=== PATIENT | female | born 1955 | race Caucasian/White ===

== ENCOUNTER 2017-04-23 13:59 | Outpatient (CLI) ==
--- NOTE | 2017-04-23 14:38 | DI ---
EXAM: Five views of the cervical spine HISTORY: Radiculopathy. COMPARISON: None FINDINGS: Vertebral bodies demonstrate no acute compression fracture or subluxation. The facets and posterior processes are normal. There is no lytic or blastic lesion. The neural foramen are patent. The odontoid process is unremarkable. IMPRESSION: No acute abnormality or compression fracture of the cervical spine.
--- NOTE | 2017-04-23 14:39 | DI ---
EXAM: Three views of the thoracic spine HISTORY: Back pain. COMPARISON: None FINDINGS: There is no acute compression fracture or subluxation. There is minimal scattered disc spa ce narrowing. There is no lytic or blastic lesion. There are surgical clips in right upper quadrant . IMPRESSION: Mild degenerative change with no acute compression fracture or subluxation.
== END 2017-04-23 14:00 | disposition home or self-care (01) ==
LOC: RAD 13:59
PROVIDERS: ATTEND Family Medicine
DX: M54.6 Pain in thoracic spine (principal); M54.12 Radiculopathy, cervical region

== ENCOUNTER 2017-06-09 07:17 | Outpatient (CLI) ==
--- NOTE | 2017-06-09 09:32 | US ---
EXAM: Right upper quadrant abdominal ultrasound. History: Abdominal pain. Technique: Multiple sonographic images through the abdomen were obtained. Color duplex Doppler was used to interrogate vascular flow. Findings: The visualized pancreas demonstrates no gross abnormality. No abdominal ascites. No focal liver les ions identified sonographically. The liver is echogenic. There is antegrade flow within the main po rtal vein. Status post cholecystectomy. Common bile duct measures 0.4 cm in caliber. Limited visua lization of the right kidney demonstrates no evidence for hydronephrosis. Impression: 1. Hepatic steatosis. 2. Status post cholecystectomy.
== END 2017-06-09 07:18 | disposition home or self-care (01) ==
LOC: RAD 07:17
PROVIDERS: ATTEND Family Medicine
DX: M54.6 Pain in thoracic spine (principal)

== ENCOUNTER 2017-06-10 10:02 | Outpatient (CLI) ==
--- NOTE | 2017-06-10 15:32 | MRI ---
EXAM: MRI thoracic spine without IV contrast. DATE: 10 June 2017. HISTORY: Acute left-sided thoracic spine pain. TECHNIQUE: Sagittal T2W, sagittal T1W, sagittal IR, coronal T2W, axial T2W and axial T1W sequences o f the thoracic spine were obtained using 1.2 Alexa magnet. No IV contrast. COMPARISON: Thoracic spine series 23 April 2017. Thyroid ultrasound 02 July 2015. FINDINGS: Sagittal counting carbon rod inserter sequence of the cervical and thoracic spine reveals no acute c-spi ne fracture, subluxation, osseous malignancy, or jumped facet. Cervical vertebrae normal in height. Intervertebral discs are normal in height. Minor posterior disc bulges may cause mild central canal stenoses at C4-5, C5-6 and C6-7. No cord edema, syrinx, or myelomalacia is evident. Visible brains tem and cerebellum are normal. A T2W bright, 6.3 mm focus in the left thyroid lobe is best seen on a xial image #2. No suspicious soft tissue neck mass or cervical lymphadenopathy is identified. There are 12 thoracic vertebra with paired ribs. Mild leftward curvature of the upper thoracic and lo wer cervical spine is noted. Mild, gradual kyphotic curvature of the thoracic spine is noted. No ac [place] T-spine fracture, subluxation, osseous malignancy, or jumped facet is evident. Thoracic vertebra are normal in height. Bone marrow signal is normal. Intervertebral discs are normal in height. Di sc desiccation is observed at T5-6, T6-7, and T7-8. Conus medullaris terminates at L1. Visible spin al cord is normal. No acute rib fracture, rib lesion, paraspinal mass, or chest wall malignancy is detected. Thoracic a [place], thoracic esophagus and trachea are normal. No pneumonia, lung mass, pleural effusion, mediasti nal lymphadenopathy or hilar lymphadenopathy is demonstrated. Visible portion of each shoulder is un remarkable. Right lobe liver is approximately 18.5 cm in length, without distinct focal mass. Splee n, adrenal glands, and right kidney reveal no definitive neoplasm. T2W/T1W bright, 7.3 mm focus in t he posterior cortex upper pole left kidney is likely a hemorrhagic cyst. T2W bright, T1W dark, 7.7 m m focus in the posterolateral cortex lower pole left kidney is likely a simple cyst, but not fully ch aracterized. Segmental analysis: C7-T1: Normal, except for mild right foraminal narrowing due to facet disease. T1-2: Normal. T2-3: Normal. T3-4: Normal, except for minor right foraminal narrowing due to mild right facet arthropathy. T4-5: Normal. T5-6: Normal. T6-7: Normal, except for minor thecal sac narrowing due to dorsal epidural fat. T7-8: Normal, except for minor thecal sac narrowing due to dorsal epidural fat. T8-9: Normal, except for minor thecal sac narrowing due to dorsal epidural fat. T9-10: Normal, except for mild bilateral facet arthropathy. T10-11: Normal. T11-12: Normal. T12-L1: Normal. IMPRESSIONS: 1. T-spine minor leftward curvature (superiorly) and minor/mild facet arthropathy. 2. Minor central canal stenoses at T6-7, T7-8, and T8-9 due to dorsal epidural fat. 3. Mild right C7-T1 and minor right T3-4 foraminal narrowing. 4. C-spine DDD and mild central stenoses at C4-5, C5-6, C6-7. 5. Left kidney probable benign hemorrhagic and simple cysts. 6. Mild hepatomegaly - etiology uncertain. 7. Left thyroid nodule - likely correlates with one of the nodules seen on June 2015 US. Correlate with physical exam. If indicated a follow-up ultrasound can be a obtained.
== END 2017-06-10 10:03 | disposition home or self-care (01) ==
LOC: RAD 10:02
PROVIDERS: ATTEND Family Medicine
DX: M54.6 Pain in thoracic spine (principal)

== ENCOUNTER 2018-08-13 14:00 | Outpatient (RCR) ==
--- NOTE | 2018-07-28 09:27 | RS.OPPTEV2 ---
Date of Note: 07/27/18 Visit #: 1 Number of visits approved by Insurance: n/a Date of Evaluation: 07/27/18 Payer Source: Insurance Surgery Performed?: No Treatment Diagnosis: adhesive capsulitis, L shoulder pain History of Condition/Mechanism of Injury:: No definite injury noted. Reports pain began in March 2018. 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 States she is unsure why pain began, she just woke up one day and it was sore and then has gotten worse. States pain feels "tight, pressure around her shld" Treatment Side (optional): Left *Precautions: n/a Medical History Medical History: Hypertension, Diabetes, Arthritis Surgical History: Cholecystectomy Smoking Status: Never smoker Hx Home Medications: metformin, losartan, tradjenta, methimazole, aspirin Patient's Goals: "decrease pain and be able to reach back to un hook my bra" Pain Assessment - Pain Description Pain Location: L shld Pain Description: Tightness, Aching Current Pain Intensity: 1/10 at rest increases to 6/10 with ROM Functional Outcome Measure UE Functional Index: 62 - G Codes & Severity Modifier G Codes & Modifier: n/a Source of G Code score: n/a Observation - Observation Posture: Forward Head, Rounded Shoulders Handedness: Right Gait - Gait Pattern General Gait Pattern Observation: No Deviations/Normal General Range of Motion: RUE WFL's. BLE WFL's. L shld limited, elbow WFL's Muscle Strength: RUE 5/5. BLE 5/5. LUE elbow flex/ext 4/5 Shoulder ROM: Right WFL's Shoulder Muscle Strength: Right WFL's - Left Shoulder ROM Left Shoulder Flexion: 118 Left Shoulder Abduction: 90 Left Shoulder Internal Rotation: 76 Left Shoulder External Rotation: 45 Left Shoulder ROM Limitations: Soft Tissue Tightness, Muscle Weakness, Pain - Left Shoulder Strength Left Shoulder Flexion: 3- Fair- Left Shoulder Abduction: 3- Fair- Left Shoulder External Rotation: 3- Fair- Left Shoulder Internal Rotation: 3 Fair - Special Tests Shoulder Empty Can (Supraspinatus) Test: Positive Left Shoulder Speed's Sign Test: Positive Left Shoulder Apley's Scratch Test: Positive Left Palpation Palpation Findings: Tenderness Comments:: tenderness to palpation L shld in area of biceps tendon Sensation - Sensation Right Upper Extremity: Intact/Normal Left Upper Extremity: Intact/Normal Right Lower Extremity: Intact/Normal Left Lower Extremity: Intact/Normal Balance - Sitting Balance Static Sitting Balance: Normal Dynamic Sitting Balance: Normal - Standing Balance Static Standing Balance: Normal Dynamic Standing Balance: Normal - Treatment Modality: Ultrasound Parameters/Method Applied: 1.5w/cm2 x 8 mins Treatment Area: L shld Patient Position: Sitting Interventions - Exercise/Activities/Manual Therapy Exercises/Activities: pt received AAROM all planes L shld. pt performed AAROM with wand for flex. Finger walking in flex and abd, Isometric shld flex, abd, add, Manual Therapy: n/a HOME EXERCISE PROGRAM: pt given written HEP including shld flex AAROM with wand , tabletop shld AAROM Flex and abd, and ER. - Charges Timed Code Treatment Minutes: 46 Total Treatment Time: 52 Procedures billed for this date of service:: eval low, ultrasound, ex EVALUATION COMPLEXITY LEVEL EVALUATION COMPLEXITY LEVEL: HISTORY: Medium, EXAM OF BODY SYSTEMS: Low, CLINICAL PRESENTATION: Low, CLINICAL DECISION MAKING: Low Assessment Assessment: pt presents with decreased L shld ROM, strength, pain due to adhesive capsulitis. Feel pt would benefit from skilled PT for therex for ROM, strengthening, stretching to improve L shld ROM as well as modalities to decrease pain. Patient Education: Home Exercise Program, Education of Plan of Care Rehab Potential: Good Short Term Goals Goal #1: pt independent with initial HEP Goal to be met by: 08/06/18 Goal #2: ROM L shld flex 120, abd 100, ER 50 Goal to be met by: 08/06/18 Goal #3: Decrease pain with L shld ROM Goal to be met by: 08/06/18 Care Home Goals Goal #1: ROM L shld flex 125 abd 110 ER 60 Goal to be met by: 08/20/18 Goal #2: pt able to perform normal daily activities with less pain Goal to be met by: 08/20/18 Goal #3: pt able to reach to unhook bra independently Goal to be met by: 08/20/18 Plan - Treatment to be Provided Procedures: Therapeutic Exercises, Therapeutic Activity, Manual Therapy, Massage , Patient Education Modalities: Electrical Stimulation, Ultrasound/Phonophoresis, Class IV Laser, Cryotherapy, Hot Packs - Treatment Plan Frequency: 2 X week Duration: 4 weeks Dates of Television Station Manager Goals: 08/20/18 Expiration date of current Insurance Approval:: n/a - Treatment Code (1) Pain in joint, shoulder region Code(s): M25.519 - PAIN IN UNSPECIFIED SHOULDER Qualifiers: Laterality: left Qualified Code(s): M25.512 - Pain in left shoulder (2) Stiffness of joint, not elsewhere classified, shoulder region Code(s): M25.619 - STIFFNESS OF UNSPECIFIED SHOULDER, NOT ELSEWHERE CLASSIFIED (3) Adhesive capsulitis Code(s): M75.00 - ADHESIVE CAPSULITIS OF UNSPECIFIED SHOULDER Qualifiers: Laterality: left Qualified Code(s): M75.02 - Adhesive capsulitis of left shoulder
--- NOTE | 2018-07-30 16:05 | RS.OPPTDN ---
Subjective Date of Note: 07/30/18 Visit #: 2 Number of visits approved by Insurance: n/a Date of Evaluation: 07/27/18 Payer Source: Insurance Treatment Diagnosis: adhesive capsulitis, L shoulder pain Current Subjective/complaints:: pt states that she is tired today, very busy at work today. *Precautions: n/a Pain Assessment - Pain Description Pain Location: L shld Pain Description: Aching Current Pain Intensity: 1 at rest, 6 with ROM - Treatment Modality: Ultrasound Parameters/Method Applied: 1.5w/cm2 x 8 mins after ex Treatment Area: L shld Patient Position: Sitting - Heat/Cryotherapy Treatment: Hot Pack Comments:: prior to treatment Interventions - Exercise/Activities/Manual Therapy Exercises/Activities: pt received PROM L shld all planes, pt performed AAROM with wand for flex x 10, elbow flex/ext x 10 with wand, chest press with wand x 10 reps. Finger ladder flex and abd, pulleys for shld flex. pt performed scapular retraction x 10. Total minutes of Exercise: 29 Manual Therapy: n/a HOME EXERCISE PROGRAM: pt given written HEP including shld flex AAROM with wand , tabletop shld AAROM Flex and abd, and ER. - Charges Timed Code Treatment Minutes: 39 Total Treatment Time: 51 Procedures billed for this date of service:: ex2, ultrasound, hp Assessment: pt with increased stiffness this date. pt able to tolerate increased ex this visit. Patient Education: Home Exercise Program, Education of Plan of Care Patient demonstrates compliance with HEP?: Yes Short Term Goals Goal #1: pt independent with initial HEP Goal to be met by: 08/06/18 Progress towards Goal:: Progressing Goal #2: ROM L shld flex 120, abd 100, ER 50 Goal to be met by: 08/06/18 Progress towards Goal:: Progressing Goal #3: Decrease pain with L shld ROM Goal to be met by: 08/06/18 Progress towards Goal:: Progressing Milk Tester Goals Goal #1: ROM L shld flex 125 abd 110 ER 60 Goal to be met by: 08/20/18 Goal #2: pt able to perform normal daily activities with less pain Goal to be met by: 08/20/18 Goal #3: pt able to reach to unhook bra independently Goal to be met by: 08/20/18 Plan Dates of Milk Tester Goals: 6/7/19 Expiration date of current Insurance Approval:: n/a PLAN: plan to continue to work on ROM L shld as well as strengthening, and modalties to decrease pain and decrease muscle tightness.
--- NOTE | 2018-08-03 15:09 | RS.CXNS ---
Date of scheduled appointment: 08/03/18 Type: Cancel (Patient call to cancel appointment today due to being sick. States she plans to attend next appointment.)
--- NOTE | 2018-08-06 16:26 | RS.OPPTDN ---
Subjective Date of Note: 08/06/18 Visit #: 3 Number of visits approved by Insurance: na Date of Evaluation: 07/27/18 Payer Source: Insurance Treatment Diagnosis: adhesive capsulitis, L shoulder pain Current Subjective/complaints:: Patient reports she has pain with end range motion. States ROM seems better following treatment today. *Precautions: n/a Pain Assessment - Pain Description Pain Location: left shoulder Pain Description: Sharp, Aching Current Pain Intensity: mild to mod - Treatment Modality: Ultrasound Parameters/Method Applied: [id number] at 1.5w/cm2 to the left shoulder joint prior to EX. Patient Position: Sitting - Heat/Cryotherapy Treatment: Hot Pack ([id number] to the left shoulder prior to US. pt in sitting. ) Interventions - Exercise/Activities/Manual Therapy Exercises/Activities: PROM to the left shoulder into flex, scap, abd, and limited ER. Isometrics for contract/relax. Discussion of wall walking. Finger ladder. Shoulder pulleys into flex and abd. Began doorway stetching, 3 positions. Total minutes of Exercise: 29mins Manual Therapy: gentle joint mobs and distraction during PROM. HOME EXERCISE PROGRAM: pt given written HEP including shld flex AAROM with wand , tabletop shld AAROM Flex and abd, and ER. - Charges Timed Code Treatment Minutes: 39mins Total Treatment Time: 54mins Procedures billed for this date of service:: HP, US, EX2 Assessment: Patient able to relax and tolerate increase PROM of the left shoulder. Patient Education: Body/Joint mechanics, Home Exercise Program Patient demonstrates compliance with HEP?: Yes Short Term Goals Goal #1: pt independent with initial HEP Goal to be met by: 08/06/18 Progress towards Goal:: Progressing Goal #2: ROM L shld flex 120, abd 100, ER 50 Goal to be met by: 08/06/18 Progress towards Goal:: Progressing Goal #3: Decrease pain with L shld ROM Goal to be met by: 08/06/18 Progress towards Goal:: Progressing [facility] Goals Goal #1: ROM L shld flex 125 abd 110 ER 60 Goal to be met by: 08/20/18 Goal #2: pt able to perform normal daily activities with less pain Goal to be met by: 08/20/18 Goal #3: pt able to reach to unhook bra independently Goal to be met by: 08/20/18 Plan Dates of [facility]dc Goals: 08/20/18 Expiration date of current Insurance Approval:: 08/20/18 PLAN: Continue modalities and progress ROM and strengthening of the left shoulder to increase patients functional activity level.
--- NOTE | 2018-08-11 13:14 | RS.OPPTDN ---
Subjective Date of Note: 08/11/18 Visit #: 4 Number of visits approved by Insurance: na Date of Evaluation: 07/27/18 Payer Source: Insurance Treatment Diagnosis: adhesive capsulitis, L shoulder pain Current Subjective/complaints:: Reports she feels she has seen improvement in left shoulder pain and motion. *Precautions: n/a Pain Assessment - Pain Description Pain Location: left shoulder Pain Description: Tightness, Sharp Current Pain Intensity: mild to mod with movement, no pain at rest - Treatment Modality: Ultrasound Parameters/Method Applied: [id number] at 1.5w/cm2 to the left shoulder joint and upper arm prior to EX. Patient Position: Sitting - Heat/Cryotherapy Treatment: Hot Pack ([id number] to the left shoulder prior to US and EX. Patient in sitting. ) Interventions - Exercise/Activities/Manual Therapy Exercises/Activities: PROM to the left shoulder into flex, scap, abd, and limited ER. Isometrics for contract/relax. Wall walking. Discussed shoulder pulleys and doorway stetching, 3 positions, with HEP. Total minutes of Exercise: 27mins Manual Therapy: gentle joint mobs and distraction during PROM. HOME EXERCISE PROGRAM: pt given written HEP including shld flex AAROM with wand , tabletop shld AAROM Flex and abd, and ER. - Charges Timed Code Treatment Minutes: 39mins Total Treatment Time: 54mins Procedures billed for this date of service:: HP, US, EX2 Assessment: Patient progressing with PROM of the left shoulder. She continues to have a tight, painful end feel. Patient Education: Body/Joint mechanics, Home Exercise Program Patient demonstrates compliance with HEP?: Yes Short Term Goals Goal #1: pt independent with initial HEP Goal to be met by: 08/06/18 Progress towards Goal:: Progressing Goal #2: ROM L shld flex 120, abd 100, ER 50 Goal to be met by: 08/06/18 Progress towards Goal:: Progressing Goal #3: Decrease pain with L shld ROM Goal to be met by: 08/06/18 Progress towards Goal:: Progressing [facility] Goals Goal #1: ROM L shld flex 125 abd 110 ER 60 Goal to be met by: 08/20/18 Goal #2: pt able to perform normal daily activities with less pain Goal to be met by: 08/20/18 Goal #3: pt able to reach to unhook bra independently Goal to be met by: 08/20/18 Plan Dates of Penitentiary Goals: 08/20/18 Expiration date of current Insurance Approval:: 08/20/18 PLAN: Continue modalities and progress exercise to increase ROM and functional use of the left UE.
--- NOTE | 2018-08-13 15:30 | RS.OPPTDN ---
Subjective Date of Note: 08/13/18 Visit #: 5 Number of visits approved by Insurance: NA Date of Evaluation: 07/27/18 Payer Source: Insurance Treatment Diagnosis: adhesive capsulitis, L shoulder pain Current Subjective/complaints:: Patient reports she has more motion with wall walking and with reaching behind her back with the left UE. States she is able to start to put her left hand behind her back. *Precautions: n/a Pain Assessment - Pain Description Pain Location: left shoulder joint Current Pain Intensity: no pain at rest Worst Pain Intensity: mod to high with end range stretch - Treatment Modality: Ultrasound Parameters/Method Applied: [id number] 1.5w/cm2 to the left shoulder joint prior to EX. Patient Position: Sitting - Heat/Cryotherapy Treatment: Hot Pack ([id number] to the left shoulder prior to US and EX. Patient in sitting. ) Interventions - Exercise/Activities/Manual Therapy Exercises/Activities: PROM to the left shoulder into flex, scap, abd, and limited ER. Isometrics for contract/relax. Began yellow theraband for bilateral shoulder ER. Discussed shoulder pulleys and doorway stetching, and table stretches. Began pillow case behind back for passive IR stretch. Total minutes of Exercise: 32mins Manual Therapy: gentle joint mobs and distraction during PROM. HOME EXERCISE PROGRAM: pt given written HEP including shld flex AAROM with wand , tabletop shld AAROM Flex and abd, and ER. - Charges Timed Code Treatment Minutes: 42mins Total Treatment Time: 57mins Procedures billed for this date of service:: HP, US, EX2 Assessment: Patient progressing with ROM and with HEP. Patient Education: Body/Joint mechanics, Home Exercise Program, Home Safety, Activity Modification Patient demonstrates compliance with HEP?: Yes Short Term Goals Goal #1: pt independent with initial HEP Goal to be met by: 08/06/18 Progress towards Goal:: Progressing Goal #2: ROM L shld flex 120, abd 100, ER 50 Goal to be met by: 08/06/18 Progress towards Goal:: Partially Met Comments:: Left shoulder passive flex 125, abd 105, and ER 40-42 Goal #3: Decrease pain with L shld ROM Goal to be met by: 08/06/18 Progress towards Goal:: Progressing Intranet Specialist Goals Goal #1: ROM L shld flex 125 abd 110 ER 60 Goal to be met by: 08/20/18 Goal #2: pt able to perform normal daily activities with less pain Goal to be met by: 08/20/18 Goal #3: pt able to reach to unhook bra independently Goal to be met by: 08/20/18 Plan Dates of [facility] Goals: 08/20/18 Expiration date of current Insurance Approval:: 08/20/18 PLAN: Continue modalities and progress PROM and AROM.
== END 2018-08-13 23:59 ==
PROVIDERS: ATTEND Orthopaedic Surgery
DX: M75.01 Adhesive capsulitis of right shoulder (principal)